=== PATIENT | female | born 1950 | race Caucasian/White ===

== ENCOUNTER 2023-05-12 12:55 | Outpatient (CLI) | payer BC, OTHER | END 2023-05-12 12:56 | disposition home or self-care (01) | LOC: SCSRAD 12:55 | PROVIDERS: ATTEND Family Medicine | DX: M54.50 Low back pain, unspecified (principal); M25.559 Pain in unspecified hip; M47.816 Spondylosis without myelopathy or radiculopathy, lumbar region; M46.06 Spinal enthesopathy, lumbar region; M89.38 Hypertrophy of bone, other site | CPT/HCPCS: 72100; 72170 ==

== ENCOUNTER 2023-09-27 20:49 | Inpatient (IN) | payer MEDICARE, OTHER ==
[2023-09-27 21:07] VITALS: BMI 26.8
[2023-09-27] MEDS ORDERED: Ondansetron PF 4 MG/2 ML Vial IVP PRN (21:19)
[2023-09-28 00:05] LABS: #Basophils 0.03 10x3/uL (0.0-0.2); %Basophils 0.8 % (0.0-1.0); %Eosinophils 4.4 % (0.0-10.0); %Lymphocytes 36.1 % (21.0-51.0); %Monocytes 14.5 % (0.0-10.0); %Neutrophils 43.9 % (42.0-75.0); Hematocrit 31.4 % (36.0-47.0); Hemoglobin 9.6 g/dL (12.0-16.0); Mean Corpuscular HGB CONC 30.6 g/dL (32.0-36.0); Mean Corpuscular Hemoglobin 25.5 pg (27.0-31.0); Mean Corpuscular Volume 83.3 fL (78.0-98.0); Mean Platelet Volume 9.1 fL (7.4-10.4); Platelet Count 331 10x3/uL (130-400); Red Blood Cell (RBC) Count 3.77 mill/uL (4.20-5.40)
[2023-09-28 00:25] LABS: Anion Gap 11 mmol/L (10-20); BUN (Urea Nitrogen) 19 mg/dL (9.8-20.1); Calc. Creatinine Clearance 76 mL/min (70-130); Carbon Dioxide 25 mmol/L (23-31); Chloride 109 mmol/L (98-107); Estimated GFR 70; Glucose 204 mg/dL (83-110); Potassium 4.1 mmol/L (3.5-5.1); Sodium 141 mmol/L (136-145)
[2023-09-28] MEDS: Diazepam 5 MG TAB PO PRN (02:59)
[2023-09-28] MEDS: Ondansetron ODT 4 MG TAB PO PRN (02:59)
[2023-09-28 04:38] LABS: Anion Gap 11 mmol/L (10-20); BUN (Urea Nitrogen) 18 mg/dL (9.8-20.1); Calc. Creatinine Clearance 84 mL/min (70-130); Calcium 7.9 mg/dL (7.8-10.44); Carbon Dioxide 27 mmol/L (23-31); Chloride 109 mmol/L (98-107); Estimated GFR 79; Glucose 91 mg/dL (83-110); Potassium 4.2 mmol/L (3.5-5.1); Sodium 143 mmol/L (136-145)
[2023-09-28] MEDS: Acetaminophen 325 MG TAB PO PRN (05:57)
[2023-09-28] MEDS: Pantoprazole DR 40 MG TAB PO SCH (05:57)
[2023-09-28] MEDS: Ampicillin/Sulbactam 3 GM in Sodium Chloride 0.9% 100 ML IVPB SCH (05:57)
[2023-09-28] MEDS: Mometasone 200 MCG/Formoterol 5 MCG 120 PUFF INHALER INH SCH (07:25)
[2023-09-28] MEDS: Famotidine/PF 20 mg/2ml Vial SLOW IVP SCH (09:42)
[2023-09-28] MEDS: Famotidine 20 MG TAB PO SCH (09:43)
[2023-09-28] MEDS: Hydroxychloroquine Sulfate 200 MG TAB PO SCH (09:44)
[2023-09-28] MEDS: Fluconazole 100 MG TAB PO SCH (09:44)
[2023-09-28] MEDS: BuPROPion XL 150 MG ER.TAB PO SCH (09:44)
[2023-09-28] MEDS: HYDROcodone/Acetaminophen 5/325 mg Tablet PO PRN (09:45)
[2023-09-28 09:59] VITALS: BMI 26.8
[2023-09-28] MEDS ORDERED: Polyethylene Glycol 3350 17 GM Packet PO PRN (19:33)
[2023-09-28] MEDS: Sulfameth/Trimethoprim DS 800-160mg TAB PO SCH (21:01)
[2023-09-28] MEDS: Pantoprazole 40 MG VIAL IVP SCH (21:01)
[2023-09-28] MEDS: Verapamil 120 MG SR.TAB PO SCH (21:01)
[2023-09-29] MEDS: Acetaminophen 650 MG Suppository PR PRN (05:49)
[2023-09-29] MEDS: Levothyroxine Sodium 125 MCG TAB PO SCH (06:19)
[2023-09-29] MEDS ORDERED: E-Z-HD 98% W/W 340GM BOT (x-ray ONLY) ONE (09:18)
[2023-09-29] MEDS ORDERED: Barium Sulfate 96% 176 GM BOT (xray ONLY) ONE (09:18)
[2023-09-29 16:04] VITALS: BP 133/74; TEMP 98.3
== END 2023-09-29 17:56 | disposition home or self-care (01) | DRG 395 ==
LOC: T4-B 20:49
PROVIDERS: ADMIT Internal Medicine; ATTEND Internal Medicine
DX: K91.89 Other postprocedural complications and disorders of digestive system (principal); J32.9 Chronic sinusitis, unspecified; M06.9 Rheumatoid arthritis, unspecified; Z79.899 Other long term (current) drug therapy; I10 Essential (primary) hypertension; E03.9 Hypothyroidism, unspecified; F32.A Depression, unspecified; Z98.890 Other specified postprocedural states; K44.9 Diaphragmatic hernia without obstruction or gangrene; R13.10 Dysphagia, unspecified
CPT/HCPCS: 36415; 70450; 71045; 74220; 80048; 80053; 83605; 83690; 83735; 83880; 84443; 84484; 85025; 87040; 93005; 96365; 96366; 96368; 96375; 96376; C9113; J0295; J1885; J2185; J2405; J2543; J3490; Q0162; S0028